=== PATIENT | male | born 2000 | race Caucasian/White ===

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

== ENCOUNTER 2022-10-20 18:29 | Emergency (ER) | payer BC, SELFPAY ==
[2022-10-20 19:20] VITALS: BP 122/73; PULSE 92; RESP 18; TEMP 37.8; O2SAT 99
--- NOTE | 2022-10-20 20:02 | ED.NAVMDI ---
HPI - Nausea/Vomiting/Diarrhea General Chief complaint: Nausea/Vomiting/Diarrhea Stated complaint: nausea/vomiting Time Seen by Provider: 10/20/22 19:58 History of Present Illness HPI Narrative: Is a 22-year-old male denies past medical history, presenting the emergency department complaining of vomiting and body aches for the past day. He states the last time he vomited was approximately 20 minutes ago. He denies abdominal pain or blood in vomit. Related Data Allergies Allergy/AdvReac Type Severity Reaction Status Date / Time No Known Allergies Allergy Verified 10/20/22 18:30 Review of Systems Review of Systems: CONSTITUTIONAL: Intermittent fevers and chills denies sweats. EYES: Denies visual changes, redness, or discharge. ENT: rhinorrhea, congestion, sore throat, Denies otalgia. CARDIOVASCULAR: Denies chest pain, palpitations, or edema. RESPIRATORY: Denies cough or dyspnea. GASTROINTESTINAL: Nausea and vomiting denies abdominal pain, diarrhea. GENITOURINARY: Denies dysuria or hematuria. SKIN: Denies rash or itching. MUSCULOSKELETAL: Denies back pain, joint pain, or myalgia. NEUROLOGIC: Denies headache, numbness, dizziness, or weakness. PSYCHIATRIC: Denies anxiety or depression. PMFSH Past Medical History Medical History No acute medical problems Social History Social History Smoking status: Never smoker Alcohol intake: never Exam Narrative: GENERAL: Well-developed, well-nourished, and in no acute distress. Appears fatigued HEAD: Normocephalic, atraumatic. EYES: PERRLA and EOMI. ENT: Nares clear, no rhinorrhea or epistaxis. Mucous membranes moist. Oropharynx without tonsillar hypertrophy exudate or other lesions. NECK: Supple. No adenopathy or masses. No carotid bruits or JVD CHEST: Clear to auscultation. No respiratory distress. No wheezes rales or rhonchi HEART: Regular rate and rhythm. No murmur heard. Normal peripheral pulses. ABDOMEN: Soft, nontender, nondistended, normal active bowel sounds. EXTREMITIES: Normal range of motion. No edema. SKIN: Warm, dry, no rash. NEURO: No focal deficits. Alert and oriented x3. PSYCH: Normal mood and affect. Course Course Emergency Course: 20:52 - Reassessed patient; states his nausea and sore throat have improved with Zofran and Tylenol. He tested negative for flu and COVID, however given his symptoms of been going on for the past day this may be false negative. Will reevaluate if he continues to tolerate oral fluids will discharge. 21:11 - Patient continues to tolerate p.o. Will discharge with Tylenol and Zofran. Discussed return emergency precautions including signs/symptoms concerning for appendicitis and intractable vomiting. Patient voiced understanding is comfortable with plan. All questions answered to his satisfaction. Vital Signs Vital signs: Vital Signs Temperature 100.0 F H 10/20/22 19:20 Pulse Rate 92 10/20/22 19:20 Respiratory Rate 18 10/20/22 19:20 Blood Pressure 122/73 10/20/22 19:20 Pulse Oximetry 99 10/20/22 19:20 Oxygen Delivery Room Air 10/20/22 19:20 Temperature 100.0 F H 10/20/22 19:20 Pulse Rate 92 10/20/22 19:20 Respiratory Rate 18 10/20/22 19:20 Blood Pressure 122/73 10/20/22 19:20 Pulse Oximetry 99 10/20/22 19:20 Oxygen Delivery Room Air 10/20/22 19:20 MDM - Nausea/Vomiting/Diarrhea MDM Narrative Medical decision making narrative: Plan: Labs, antiemetics, pain control, reassess Differential Diagnosis Differential diagnosis: Likely gastroenteritis and other (Influenza, COVID, viral URI, other) Lab Data Labs: Lab Results 10/20/22 Range/Units 19:49 Influenza A (RT-PCR) Negative (Negative) Influenza B (RT-PCR) Negative (Negative) RSV (RT-PCR) Negative (Negative) SARS-CoV-2 RNA (RT-PCR) Negative Discharge Plan Discharge Clinical Imp
[2022-10-20] MEDS: ONDANSETRON HCL ODT 4 MG TABLET PO (20:29)
[2022-10-20] MEDS: ACETAMINOPHEN 500 MG TABLET 1000 MG PO (20:29)
[2022-10-20 20:45] LABS: Influenza A QL RT-PCR Negative (Negative); Influenza B QL RT-PCR Negative (Negative); RSV RNA, RT-PCR Negative (Negative); SARS-CoV-2 RNA PCR Negative
[2022-10-20 21:28] VITALS: BP 108/72; PULSE 100; RESP 16; O2SAT 99
== END 2022-10-20 21:31 | disposition home or self-care (01) ==
PROVIDERS: Emergency Medicine; Emergency Provider Preventive Medicine Aerospace Medicine
DX: J11.1 Influenza due to unidentified influenza virus with other respiratory manifestations (principal); R11.2 Nausea with vomiting, unspecified; Z20.822 Contact with and (suspected) exposure to COVID-19
CPT/HCPCS: 87637; 99283; A9270